=== PATIENT | male | born 1980 | race Caucasian/White ===

== ENCOUNTER 2019-10-13 15:16 | Emergency (ER) | payer MEDICAID, OTHER ==
[~2019-10-13] VITALS: Ht 182.9 cm; Wt 90.7 kg
[2019-10-13 15:25] VITALS: BP 141/82
[2019-10-13] MEDS ORDERED: cefTRIAXone SOD 500 MG VL IM ONE (16:00)
[2019-10-13] MEDS ORDERED: AZITHROMYCIN 250 MG TAB PO ONE (16:00)
[2019-10-13 16:05] LABS: Urine Amorphous Crystal MOD /hpf (None Seen); Urine Bacteria NONE SEEN /hpf (None Seen); Urine Blood Negative /uL (Negative); Urine Mucus FEW (None Seen); Urine WBC 3 /hpf (0 - 3)
== END 2019-10-13 17:00 | disposition home or self-care (01) ==
LOC: EDSEX 15:16 → ER 15:16
DX: Z20.2 Contact with and (suspected) exposure to infections with a predominantly sexual mode of transmission (principal); F17.210 Nicotine dependence, cigarettes, uncomplicated; Z88.6 Allergy status to analgesic agent; Z76.0 Encounter for issue of repeat prescription
CPT/HCPCS: 81001; 96372; 99283; J0696